=== PATIENT | male | born 1970 | race Caucasian/White ===

== ENCOUNTER 2023-11-19 00:35 | Emergency (ER) | payer OTHER ==
[~2023-11-19] VITALS: Ht 175.3 cm; Wt 97.5 kg
[2023-11-19 01:12] VITALS: BP 117/71; PULSE 84; RESP 18; TEMP 97.4; O2SAT 98
[2023-11-19 01:20] VITALS: BP 117/71; PULSE 84; RESP 18; TEMP 97.4
[2023-11-19 01:40] VITALS: O2SAT 98
[2023-11-19] MEDS: HYDROcodone/APAP 5/325 MG 1 TAB TAB PO ONE (02:09)
[2023-11-19] MEDS: ACETAMINOPHEN EXTRA STRENGTH 500 MG TAB PO ONE (04:32)
[2023-11-19] MEDS: IBUPROFEN 600 MG TAB PO ONE (04:57)
[2023-11-19] MEDS ORDERED: ACET-10509 PO (05:13)
[2023-11-19] MEDS ORDERED: DICL100G32 TP (05:13)
[2023-11-19] MEDS ORDERED: CYCL-711 PO (05:13)
[2023-11-19 05:27] VITALS: O2SAT 98
[2023-11-19 05:51] VITALS: O2SAT 98
== END 2023-11-19 06:16 | disposition home or self-care (01) ==
LOC: MED 00:35
DX: S20.212A Contusion of left front wall of thorax, initial encounter (principal); S10.0XXA Contusion of throat, initial encounter; E11.9 Type 2 diabetes mellitus without complications; I10 Essential (primary) hypertension; Z88.0 Allergy status to penicillin; Z79.4 Long term (current) use of insulin; Z79.899 Other long term (current) drug therapy; V49.88XA Car occupant (driver) (passenger) injured in other specified transport accidents, initial encounter; Y93.89 Activity, other specified; Y92.89 Other specified places as the place of occurrence of the external cause; Y99.8 Other external cause status
CPT/HCPCS: 70450; 71250; 72125; 90471; 90715; 99291